=== PATIENT | female | born 1965 | race Hispanic/Latino ===

== ENCOUNTER → 2024-08-20 | Outpatient (CLI) | payer OTHER ==
--- NOTE | 2024-08-20 12:07 | HMCIMG ---
MR SHOULDER RIGHT WO HISTORY: Status post fall COMPARISON: None TECHNIQUE: MRI of the right shoulder was performed utilizing multiple pulse sequences in axial, coronal and sagittal planes. Patient was not given contrast through intravenous route. FINDINGS: No abnormal signal intensity is seen of the visualized bony structure. Hypertrophic degenerative changes are seen of the acromioclavicular joint. There is downward sloping of acromion in a medial to lateral direction encroaching upon the rotator cuff tendon and muscles. There is rotator cuff tendinosis. No fluid is seen in several paraseptal ventricles. The glenoid labrum is intact. Bicipital tendon is seen within its groove. No appreciable amount of joint effusion is seen. IMPRESSION: 1. DJD. Rotator cuff tendinosis.
== END | disposition home or self-care (01) ==
LOC: RAH 08:20
PROVIDERS: ATTEND Student in an Organized Health Care Education/Training Program
DX: M75.21 Bicipital tendinitis, right shoulder (principal); M19.011 Primary osteoarthritis, right shoulder; W19.XXXA Unspecified fall, initial encounter; Y92.89 Other specified places as the place of occurrence of the external cause; Y93.89 Activity, other specified; Y99.8 Other external cause status
CPT/HCPCS: 73221

== ENCOUNTER 2024-12-31 08:36 | Day surgery (SDC) | payer OTHER ==
[~2024-12-31 08:36] MED LIST: 0.9%NACL 1000ML 1,000 ML IV ONE
--- NOTE | 2024-12-31 09:30 | NUR ---
PT PROCEDURE CANCELLED DUE TO OZEMPIC LAST USE WAS [id number]/28/2024
[2024-12-31] MEDS ORDERED: VITA400T9 PO (09:48)
[2024-12-31] MEDS ORDERED: SEMA2PEN SQ (09:48)
[2024-12-31] MEDS ORDERED: ALBUHFA IH (09:48)
[2024-12-31] MEDS ORDERED: TRIAM15CRM TP (09:48)
[2024-12-31] MEDS ORDERED: CHOL100034 PO (09:48)
[2024-12-31] MEDS ORDERED: FISH1CAP27 PO (09:48)
[2024-12-31] MEDS ORDERED: PROB500T26 PO (09:48)
[2024-12-31] MEDS ORDERED: LOSA50TA64 PO (09:48)
[2024-12-31] MEDS ORDERED: HYDR200T75 PO (09:48)
[2024-12-31] MEDS ORDERED: ACET-3859 PO (09:50)
[2024-12-31] MEDS ORDERED: ARIP30TA PO (09:50)
[2024-12-31] MEDS ORDERED: ATOR40TA69 PO ×2 (09:50→10:02)
[2024-12-31] MEDS ORDERED: DULO60CA64 PO (10:02)
[2024-12-31] MEDS ORDERED: HYDR-3421 PO (10:02)
[2024-12-31] MEDS ORDERED: ACET-2893 PO (10:02)
[2024-12-31] MEDS ORDERED: INSU3INS3 SQ (10:02)
[2024-12-31] MEDS ORDERED: GABA300C PO (10:02)
[2024-12-31] MEDS ORDERED: FAMO20TA8 PO (10:02)
[2024-12-31] MEDS ORDERED: DOXE100C4 PO (10:02)
[2024-12-31] MEDS ORDERED: MULT-1203 PO (10:02)
== END 2024-12-31 20:03 | disposition home or self-care (01) ==
LOC: ENDO 08:36 → DAH 08:36 → ENDO 20:03
PROVIDERS: ATTEND Surgery
DX: R12 Heartburn (principal); Z53.8 Procedure and treatment not carried out for other reasons
CPT/HCPCS: J7030